=== PATIENT | female | born 1940 | race Caucasian/White ===

== ENCOUNTER 2016-08-14 05:50 | Day surgery (SDC) | payer OTHER, MEDICARE ==
[2016-08-11 11:02] VITALS: BMI 18.7
--- NOTE | 2016-08-14 07:07 | HP ---
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 patient presents for ECT his last ECT was 07/09/16 at [facility]. patient reports the ect program at [facility] closed, as a result she was referred to [facility] for ect. patient reports she was on antidepressents, however, the medications were discontinued due to elevated liver enzymes. patient does report an improvement in depressive symptoms since starting ECT. She denies any recent illness or hospitalizations. 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 Cardiovascular: Yes: Aneurysm Gastrointestinal: Yes: Inflamatory Bowel Disease ...: No Infectious Disease: Yes: Other (chronic hip infection, on doxycline for a lifetime) - Past Surgical History Past Surgical History: Yes: AAA Repair, Colostomy (with reversal=), Tonsillectomy Additional Past Surgical History: bilateral hip replacement bilateral knee replacement - Advance Directives Advance Directives: Yes: Living Will - Smoking History Smoking history: Former smoker Have you smoked in the past 12 months: No If you are a former smoker, when did you quit?: 1999 - Alcohol/Substance Use Hx Alcohol Use: No - Social History Usual Living Arrangement: Yes: Alone ADL: Independent Occupation: retired History of Recent Travel: No Home Medications - Allergies Allergies/Adverse Reactions: Allergies Allergy/AdvReac Type Severity Reaction Status Date / Time amylase [From Creon] Allergy Intermediate Rash Verified 08/11/16 11:05 lipase [From Creon] Allergy Intermediate Rash Verified 08/11/16 11:05 protease [From Creon] Allergy Intermediate Rash Verified 08/11/16 11:05 shellfish derived Allergy Intermediate RASH, Verified 08/11/16 11:05 DIARRHEA furosemide Allergy UNKNOWN Verified 08/11/16 11:05 - Home Medications Home Medications: Ambulatory Orders Aspirin Coated [Ecotrin -] 81 mg PO DAILY 08/11/16 Biotin 2,500 mcg PO DAILY 08/11/16 Calcium Carbonate/Vitamin D3 [Calcium 500-Vit D3 600 Tablet] 1 tab PO DAILY Cholestyramine/Aspartame [Prevalite Powder] 231 gm PO BID 08/11/16 Cranberry Conc/Ascorbic Acid [Cranberry Concentrate Softgel] 2 cap PO DAILY Doxycycline Hyclate 100 mg PO BID 08/11/16 Fenofibrate Nanocrystallized [Fenofibrate] 145 mg PO DAILY 08/11/16 Insulin Glargine,Hum.rec.anlog [Lantus Solostar PEN -] 0 - 4 units SQ BID L.acidoph,Paracasei, B.lactis [Probiotic] 1 each PO DAILY 08/11/16 Levothyroxine [Synthroid -] 50 mcg PO DAILY 08/11/16 Lorazepam [Ativan] 1.5 mg PO HS 08/11/16 Mirtazapine [Remeron -] 15 mg PO HS 08/11/16 Multivit-Min/Iron/Folic/Lutein [Centrum Silver Women Tablet] 1 tab PO DAILY Ranitidine HCl [Zantac] 300 mg PO TID 08/11/16 Sodium Bicarbonate 650 mg PO TID 08/11/16 Family Disease History - Family Disease History Family History: Unremarkable Review of Systems - Review of Systems Constitutional: reports: No Symptoms Eyes: reports: No Symptoms HENT: reports: No Symptoms Neck: reports: No Symptoms Cardiovascular: reports: No Symptoms Respiratory: reports: No Symptoms Gastrointestinal: reports: No Symptoms Genitourinary: reports: No Symptoms Breasts: reports: No Symptoms Reported Musculoskeletal: reports: No Symptoms Integumentary: reports: No Symptoms Neurological: reports: No Symptoms Endocrine: reports: No Symptoms Hematology/Lymphatic: reports: No Symptoms Psychiatric: reports: No Symptoms Physical Examination Constitutional: Yes: No Distress, Calm, Cachectic Eyes: Yes: WNL, Conjunctiva Clear, EOM Intact HENT: Yes: WNL, Atraumatic, Normocephalic Cardiovascular: Yes: WNL, Regular Rate and Rhythm, Murmur, S1, S2, Other (2/6 systolic murmur) Respiratory: Yes: Regular, CTA Bilaterally Gastrointestinal: Yes: Normal Bowel Sounds, Soft ...Rectal Exam: Yes: Deferred Renal/: Yes: WNL. No: CVA Tenderness - Left, CVA Tenderness - Right Musculoskeletal: Yes: WNL Extremities: Yes: WNL Edema: Yes (chronic as per pt ) Edema: LLE: 1+, RLE: 1+ Peripheral Pulses WNL: Yes Peripheral Pulses: Left Radial: 4+, Right Radial: 4+, Left Doralis Pedis: 3+, Right Dorsalis Pedis: 3+, Left Femoral: 3+, Right Femoral: 3+ Integumentary: Yes: WNL Neurological: Yes: WNL, Alert, Oriented ...Motor Strength: WNL Psychiatric: Yes: WNL, Alert, Oriented Labs: CBC WBC 6.0 K/mm3 (4.0-10.0) 08/14/16 06:00 RBC 3.54 M/mm3 (3.60-5.2) L 08/14/16 06:00 Hgb 11.2 GM/dL (10.7-15.3) 08/14/16 06:00 Hct 34.5 % (32.4-45.2) 08/14/16 06:00 MCV 97.7 fl (80-96) H 08/14/16 06:00 MCHC 32.5 g/dl (32.0-36.0) 08/14/16 06:00 RDW 15.1 % (11.6-15.6) 08/14/16 06:00 Plt Count 195 K/MM3 (134-434) 08/14/16 06:00 MPV 8.8 fl (7.5-11.1) 08/14/16 06:00 Neutrophils % 48.1 % (42.8-82.8) 08/14/16 06:00 Lymphocytes % 39.3 % (8-40) 08/14/16 06:00 Monocytes % 9.5 % (3.8-10.2) 08/14/16 06:00 Eosinophils % 2.3 % (0-4.5) 08/14/16 06:00 Basophils % 0.8 % (0-2.0) 08/14/16 06:00 Imaging - Results EKG: Image Reviewed, Other (nsr, left axix deviation) Assessment/Plan pt is a 76 y/o female that presents for ECT,she has received anesthesia in the past and denies any adverse reaction.. labs and ekg reviewed no signs of fluid overload noted on exam pt is low risk for ect informed consent, risks/benefits to be obtained by Dr Titus
[2016-08-14 07:26] LABS: BASOPHIL 0.8 % (0-2.0); EOSINOPHIL 2.3 % (0-4.5); MCH 31.8 pg (25.7-33.7); MCHC 32.5 g/dl (32.0-36.0); MEAN CELL VOLUME 97.7 fl (80-96); MEAN PLT VOLUME 8.8 fl (7.5-11.1); NEUTROPHILS 48.1 % (42.8-82.8); PLATELET COUNT 195 K/MM3 (134-434); RDW 15.1 % (11.6-15.6)
[2016-08-14 08:24] LABS: ALBUMIN 2.7 g/dl (3.4-5.0); BILIRUBIN,TOTAL 0.3 mg/dL (0.2-1.0); CALCIUM 9.3 mg/dL (8.5-10.1); CREATININE 1.3 mg/dL (0.55-1.02); TOT PROT 6.2 g/dl (6.4-8.2)
[2016-08-14] MEDS ORDERED: KETAMINE HCL 500 MG/10 ML VIAL ONE (08:48)
[2016-08-14] MEDS ORDERED: BACITRACIN 30 GM TUBE TOPICAL OINTMENT ONE (09:27)
[2016-08-14 10:42] VITALS: TEMP 98.1
[2016-08-14 10:43] VITALS: BP 122/75; PULSE 71
--- NOTE | 2016-08-14 16:46 | EKG ---
Test Reason : Blood Pressure : / mmHG Vent. Rate : 079 BPM Atrial Rate : 060 BPM P-R Int : 198 ms QRS Dur : 078 ms QT Int : 392 ms P-R-T Axes : 059 -53 030 degrees QTc Int : 449 ms SINUS RHYTHM WITH FREQUENT PREMATURE VENTRICULAR COMPLEXES LEFT AXIS DEVIATION LOW VOLTAGE QRS NO PREVIOUS ECGS AVAILABLE Confirmed by MD ROSALES MARJORY ([id number]) on 08/14/2016 4:46:26 PM Referred By: Al Titus Confirmed By:MITA ROSALES MD
== END 2016-08-14 10:35 | disposition home or self-care (01) ==
LOC: FECT 05:50
PROVIDERS: ATTEND Psychiatry & Neurology Psychiatry
PROC: GZB4ZZZ Other Electroconvulsive Therapy (ICD-10-PCS; principal; 2016-08-14 07:00)
DX: F33.2 Major depressive disorder, recurrent severe without psychotic features (principal)
CPT/HCPCS: 36415; 80053; 85025; 90870; 93005; 94760

== ENCOUNTER 2016-09-11 05:46 | Day surgery (SDC) | payer OTHER, MEDICARE ==
[2016-09-03 10:58] VITALS: BMI 18.7
[2016-09-11] MEDS ORDERED: ONDANSETRON 4 MG/2 ML VIAL IVPUSH PRN (06:46)
[2016-09-11 06:51] VITALS: TEMP 97.7
[2016-09-11] MEDS ORDERED: KETAMINE HCL 500 MG/10 ML VIAL ONE (07:18)
[2016-09-11 09:06] VITALS: BP 130/72; PULSE 80
== END 2016-09-11 09:33 | disposition home or self-care (01) ==
LOC: FECT 05:46
PROVIDERS: ATTEND Psychiatry & Neurology Psychiatry
PROC: GZB4ZZZ Other Electroconvulsive Therapy (ICD-10-PCS; principal; 2016-09-11 07:00)
DX: F33.2 Major depressive disorder, recurrent severe without psychotic features (principal)
CPT/HCPCS: 90870; 94760

== ENCOUNTER 2016-10-09 05:39 | Day surgery (SDC) | payer OTHER, MEDICARE ==
--- NOTE | 2016-10-09 06:56 | HP ---
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 Patient presents for ECT, her last ECT was 09/11/16. Patient reports feeling well , denies any recent medication changes. She reports compliance with prescribed medication. patient denies any suicidal or homicidal ideation, visual or auditory hallucination. 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 Cardiovascular: Yes: Aneurysm Gastrointestinal: Yes: Inflamatory Bowel Disease Infectious Disease: Yes: Other (chronic hip infection, on doxycline for a lifetime) - Past Surgical History Past Surgical History: Yes: AAA Repair, Colostomy (with reversal=), Tonsillectomy - Smoking History Smoking history: Former smoker Have you smoked in the past 12 months: No If you are a former smoker, when did you quit?: 1999 - Alcohol/Substance Use Hx Alcohol Use: No - Social History Usual Living Arrangement: Yes: Other (with son and daughter in law) ADL: Independent Occupation: retired History of Recent Travel: No Home Medications - Allergies Allergies/Adverse Reactions: Allergies Allergy/AdvReac Type Severity Reaction Status Date / Time amylase [From Creon] Allergy Intermediate Rash Verified 08/11/16 11:05 lipase [From Creon] Allergy Intermediate Rash Verified 08/11/16 11:05 protease [From Creon] Allergy Intermediate Rash Verified 08/11/16 11:05 shellfish derived Allergy Intermediate RASH, Verified 08/11/16 11:05 DIARRHEA furosemide Allergy UNKNOWN Verified 08/11/16 11:05 - Home Medications Home Medications: Ambulatory Orders Aspirin Coated [Ecotrin -] 81 mg PO DAILY 08/11/16 Biotin 2,500 mcg PO DAILY 08/11/16 Calcium Carbonate/Vitamin D3 [Calcium 500-Vit D3 600 Tablet] 1 tab PO DAILY Cholestyramine/Aspartame [Prevalite Powder] 231 gm PO BID 08/11/16 Cranberry Conc/Ascorbic Acid [Cranberry Concentrate Softgel] 2 cap PO DAILY Doxycycline Hyclate 100 mg PO BID 08/11/16 Fenofibrate Nanocrystallized [Fenofibrate] 145 mg PO DAILY 08/11/16 Insulin Glargine,Hum.rec.anlog [Lantus Solostar PEN -] 0 - 4 units SQ BID L.acidoph,Paracasei, B.lactis [Probiotic] 1 each PO DAILY 08/11/16 Levothyroxine [Synthroid -] 50 mcg PO DAILY 08/11/16 Lorazepam [Ativan] 1.5 mg PO HS 08/11/16 Mirtazapine [Remeron -] 15 mg PO HS 08/11/16 Multivit-Min/Iron/Folic/Lutein [Centrum Silver Women Tablet] 1 tab PO DAILY Sodium Bicarbonate 650 mg PO TID 08/11/16 Acetaminophen [Tylenol .Extra-Strength -] 1,000 mg PO DAILY PRN 08/14/16 Lipase/Protease/Amylase [Zenpep Dr 3,000 Units Capsule] 1 each PO TID 09/11/16 Family Disease History - Family Disease History Family History: Unremarkable Review of Systems - Review of Systems Constitutional: reports: No Symptoms, Other Eyes: reports: No Symptoms HENT: reports: No Symptoms Neck: reports: No Symptoms Cardiovascular: reports: No Symptoms Respiratory: reports: No Symptoms Gastrointestinal: reports: No Symptoms Genitourinary: reports: No Symptoms Breasts: reports: No Symptoms Reported Musculoskeletal: reports: No Symptoms Integumentary: reports: No Symptoms Neurological: reports: No Symptoms Endocrine: reports: No Symptoms Hematology/Lymphatic: reports: No Symptoms Psychiatric: reports: No Symptoms Physical Examination Constitutional: Yes: Well Nourished, No Distress, Calm, Thin Eyes: Yes: WNL, Conjunctiva Clear HENT: Yes: WNL, Atraumatic, Normocephalic Neck: Yes: WNL, Supple, Trachea Midline Cardiovascular: Yes: WNL, Regular Rate and Rhythm, S1, S2 Respiratory: Yes: WNL, Regular, CTA Bilaterally Gastrointestinal: Yes: WNL, Normal Bowel Sounds, Soft ...Rectal Exam: Yes: Deferred Renal/: Yes: WNL Breast(s): Yes: WNL Musculoskeletal: Yes: WNL Extremities: Yes: WNL Edema: No Peripheral Pulses WNL: Yes Peripheral Pulses: Left Radial: 4+, Right Radial: 4+, Left Doralis Pedis: 3+, Right Dorsalis Pedis: 3+, Left Femoral: 3+, Right Femoral: 3+ Integumentary: Yes: WNL Neurological: Yes: WNL, Alert, Oriented ...Motor Strength: WNL Psychiatric: Yes: WNL, Alert, Oriented Labs: reviewed 08/29 Imaging - Results EKG: Image Reviewed, Other (nsr left axis deviation, w/pvc no ischemic changes) Assessment/Plan pt is a 76 y/o female that presents for ECT, pt has received ECT in the past and denies any past reaction to anesthesia. labs and ekg reviewed pt is low risk for procedure informed consent, risks and benefits to be obtained by Dr Titus
[2016-10-09 07:09] VITALS: TEMP 98.2; BMI 18.8
[2016-10-09] MEDS ORDERED: KETAMINE HCL 500 MG/10 ML VIAL ONE (07:29)
[2016-10-09 09:43] VITALS: BP 137/77; PULSE 84
== END 2016-10-09 09:30 | disposition home or self-care (01) ==
LOC: FECT 05:39
PROVIDERS: ATTEND Psychiatry & Neurology Psychiatry
PROC: GZB4ZZZ Other Electroconvulsive Therapy (ICD-10-PCS; principal; 2016-10-09 07:00)
DX: F33.2 Major depressive disorder, recurrent severe without psychotic features (principal)
CPT/HCPCS: 90870; 94760

== ENCOUNTER 2016-11-06 05:37 | Day surgery (SDC) | payer OTHER, MEDICARE ==
[2016-10-28 12:50] VITALS: BMI 18.8
[2016-11-06] MEDS ORDERED: KETAMINE HCL 500 MG/10 ML VIAL ONE (07:20)
[2016-11-06 09:27] VITALS: BP 116/76; PULSE 72; TEMP 97.9
== END 2016-11-06 09:30 | disposition home or self-care (01) ==
LOC: FECT 05:37
PROVIDERS: ATTEND Psychiatry & Neurology Psychiatry
PROC: GZB4ZZZ Other Electroconvulsive Therapy (ICD-10-PCS; principal; 2016-11-06 07:15)
DX: F33.2 Major depressive disorder, recurrent severe without psychotic features (principal)
CPT/HCPCS: 90870; 94760

== ENCOUNTER 2016-12-04 05:42 | Day surgery (SDC) | payer OTHER, MEDICARE ==
[2016-11-28 11:25] VITALS: BMI 18.8
[2016-12-04 06:31] VITALS: TEMP 97.7
--- NOTE | 2016-12-04 06:51 | HP ---
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 Patient presents for ECT her last ECT was 11/06/16. She reports feeling well and reports and improvement in depressive symptoms since starting ECT. She denies any recent illness or hospitalizations. She denies any medication changes. 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 Cardiovascular: Yes: Aneurysm Gastrointestinal: Yes: Inflamatory Bowel Disease Infectious Disease: Yes: Other (chronic hip infection, on doxycline for a lifetime) - Past Surgical History Past Surgical History: Yes: AAA Repair, Colostomy (with reversal=), Tonsillectomy - Smoking History Smoking history: Former smoker Have you smoked in the past 12 months: No If you are a former smoker, when did you quit?: 1999 - Alcohol/Substance Use Hx Alcohol Use: No History of Substance Use: reports: None - Social History Usual Living Arrangement: Yes: Alone ADL: Independent Occupation: retired History of Recent Travel: No Home Medications - Allergies Allergies/Adverse Reactions: Allergies Allergy/AdvReac Type Severity Reaction Status Date / Time amylase [From Creon] Allergy Intermediate Rash Verified 08/11/16 11:05 lipase [From Creon] Allergy Intermediate Rash Verified 08/11/16 11:05 protease [From Creon] Allergy Intermediate Rash Verified 08/11/16 11:05 shellfish derived Allergy Intermediate RASH, Verified 08/11/16 11:05 DIARRHEA furosemide Allergy UNKNOWN Verified 08/11/16 11:05 - Home Medications Home Medications: Ambulatory Orders Aspirin Coated [Ecotrin -] 81 mg PO DAILY 08/11/16 Biotin 2,500 mcg PO DAILY 08/11/16 Calcium Carbonate/Vitamin D3 [Calcium 500-Vit D3 600 Tablet] 1 tab PO BID Cholestyramine/Aspartame [Prevalite Powder] 231 gm PO BID 08/11/16 Cranberry Conc/Ascorbic Acid [Cranberry Concentrate Softgel] 1 cap PO DAILY Doxycycline Hyclate 100 mg PO BID 08/11/16 Fenofibrate Nanocrystallized [Fenofibrate] 145 mg PO BID 08/11/16 Insulin Glargine,Hum.rec.anlog [Lantus Solostar PEN -] 0 - 4 units SQ DAILY L.acidoph,Paracasei, B.lactis [Probiotic] 1 each PO DAILY 08/11/16 Levothyroxine [Synthroid -] 50 mcg PO DAILY 08/11/16 Lorazepam [Ativan] 1.5 mg PO HS 08/11/16 Mirtazapine [Remeron -] 15 mg PO HS 08/11/16 Multivit-Min/Iron/Folic/Lutein [Centrum Silver Women Tablet] 1 tab PO DAILY Sodium Bicarbonate 650 mg PO TID 08/11/16 Acetaminophen [Tylenol .Extra-Strength -] 1,000 mg PO DAILY PRN 08/14/16 Lipase/Protease/Amylase [Zenpep Dr 3,000 Units Capsule] 2 each PO TID 09/11/16 Family Disease History - Family Disease History Family History: Unremarkable Review of Systems - Review of Systems Constitutional: reports: No Symptoms Eyes: reports: No Symptoms HENT: reports: No Symptoms Neck: reports: No Symptoms Cardiovascular: reports: No Symptoms Respiratory: reports: No Symptoms Gastrointestinal: reports: No Symptoms Genitourinary: reports: No Symptoms Musculoskeletal: reports: No Symptoms Integumentary: reports: No Symptoms Neurological: reports: No Symptoms Endocrine: reports: No Symptoms Hematology/Lymphatic: reports: No Symptoms Psychiatric: reports: No Symptoms Physical Examination Vital Signs: Vital Signs Temperature 97.7 F 12/04/16 06:29 Pulse Rate 66 12/04/16 06:29 Respiratory Rate 18 12/04/16 06:29 Blood Pressure 117/62 12/04/16 06:29 O2 Sat by Pulse Oximetry (%) 100 12/04/16 06:29 Constitutional: Yes: No Distress, Calm, Cachectic Eyes: Yes: WNL, Conjunctiva Clear, EOM Intact HENT: Yes: WNL, Atraumatic, Normocephalic, Rhinnorhea Neck: Yes: WNL, Supple Cardiovascular: Yes: Regular Rate and Rhythm, S1, S2 Respiratory: Yes: WNL, Regular, CTA Bilaterally Gastrointestinal: Yes: WNL, Normal Bowel Sounds, Soft ...Rectal Exam: Yes: Deferred Renal/: Yes: WNL Musculoskeletal: Yes: WNL Extremities: Yes: WNL Edema: Yes (+ 2 RLLE, chronic ) Peripheral Pulses WNL: Yes Integumentary: Yes: WNL Neurological: Yes: WNL, Alert, Oriented ...Motor Strength: WNL Psychiatric: Yes: WNL, Alert, Oriented Labs: 08/29 Imaging - Results EKG: Other (nsr left axix deviation) Other: Other (echo 08/27/16 EF 55%) Assessment/Plan pt is a 76 y/o female that presents for ECT, pt has received ect in the past and denies any adverse reaction to anesthesia. pt appears euvolemic on exam, labs and ekg reviewed. pt is low risk for procedure informed consent risks/benefits to be obtained by Dr Titus
[2016-12-04 09:10] VITALS: BP 118/70; PULSE 77
== END 2016-12-04 09:15 | disposition home or self-care (01) ==
LOC: FECT 05:42
PROVIDERS: ATTEND Psychiatry & Neurology Psychiatry
PROC: GZB4ZZZ Other Electroconvulsive Therapy (ICD-10-PCS; principal; 2016-12-04 07:45)
DX: F33.2 Major depressive disorder, recurrent severe without psychotic features (principal)
CPT/HCPCS: 90870; 94760

== ENCOUNTER 2017-01-01 05:37 | Day surgery (SDC) | payer OTHER, MEDICARE ==
[2017-01-01 06:42] VITALS: BMI 18.3
[2017-01-01] MEDS ORDERED: KETAMINE HCL 500 MG/10 ML VIAL ONE (07:34)
[2017-01-01 08:36] VITALS: TEMP 98
[2017-01-01 10:04] VITALS: PULSE 79
[2017-01-01 10:07] VITALS: BP 138/75
== END 2017-01-01 10:09 | disposition home or self-care (01) ==
LOC: FECT 05:37
PROVIDERS: ATTEND Psychiatry & Neurology Psychiatry
PROC: GZB4ZZZ Other Electroconvulsive Therapy (ICD-10-PCS; principal; 2017-01-01 07:00)
DX: F33.2 Major depressive disorder, recurrent severe without psychotic features (principal)
CPT/HCPCS: 90870; 94760

== ENCOUNTER 2017-01-29 05:38 | Day surgery (SDC) | payer OTHER, MEDICARE ==
--- NOTE | 2017-01-29 07:00 | HP ---
Admitting History and Physical - Admission History of Present Illness: patient is a 76 y/o female with a past medical history of depression, migraine, niddm, hypothyroidism, IBS, chronic hip infections (long-term doxycline), thoracic abdominal aneurysm (s/p endovascular repair). patient presents for ect her last ect was 01/01/17. She reports feeling well, patient denies any recent hospitalizations or illnesses. Patient reports any changes in medications. She denies any suicidal or homicidal ideation, visual or auditory hallucinations. 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 Cardiovascular: Yes: Aneurysm Gastrointestinal: Yes: Inflamatory Bowel Disease Infectious Disease: Yes: Other (chronic hip infection, on doxycline for a lifetime) - Past Surgical History Past Surgical History: Yes: AAA Repair, Colostomy (with reversal=), Tonsillectomy - Smoking History Smoking history: Former smoker Have you smoked in the past 12 months: No If you are a former smoker, when did you quit?: 1999 - Alcohol/Substance Use Hx Alcohol Use: No History of Substance Use: reports: None - Social History Usual Living Arrangement: Yes: With Child, Other ADL: Independent Occupation: retired History of Recent Travel: No Home Medications - Allergies Allergies/Adverse Reactions: Allergies Allergy/AdvReac Type Severity Reaction Status Date / Time amylase [From Creon] Allergy Intermediate Rash Verified 08/11/16 11:05 lipase [From Creon] Allergy Intermediate Rash Verified 08/11/16 11:05 protease [From Creon] Allergy Intermediate Rash Verified 08/11/16 11:05 shellfish derived Allergy Intermediate RASH, Verified 08/11/16 11:05 DIARRHEA furosemide Allergy UNKNOWN Verified 08/11/16 11:05 - Home Medications Home Medications: Ambulatory Orders Aspirin Coated [Ecotrin -] 81 mg PO DAILY 08/11/16 Calcium Carbonate/Vitamin D3 [Calcium 500-Vit D3 600 Tablet] 1 tab PO BID Cholestyramine/Aspartame [Prevalite Powder] 231 gm PO BID 08/11/16 Cranberry Conc/Ascorbic Acid [Cranberry Concentrate Softgel] 1 cap PO DAILY Doxycycline Hyclate 100 mg PO BID 08/11/16 Fenofibrate Nanocrystallized [Fenofibrate] 145 mg PO DAILY 08/11/16 Insulin Glargine,Hum.rec.anlog [Lantus Solostar PEN -] 0 - 4 units SQ BID L.acidoph,Paracasei, B.lactis [Probiotic] 1 each PO DAILY 08/11/16 Levothyroxine [Synthroid -] 50 mcg PO DAILY 08/11/16 Lorazepam [Ativan] 1.5 mg PO HS 08/11/16 Mirtazapine [Remeron -] 15 mg PO HS 08/11/16 Multivit-Min/Iron/Folic/Lutein [Centrum Silver Women Tablet] 1 tab PO DAILY Sodium Bicarbonate 650 mg PO TID 08/11/16 Acetaminophen [Tylenol .Extra-Strength -] 1,000 mg PO DAILY PRN 08/14/16 Lipase/Protease/Amylase [Zenpep Dr 3,000 Units Capsule] 2 each PO TID 09/11/16 Denosumab [Prolia] 60 mg SQ ASDIR 01/01/17 Family Disease History - Family Disease History Family History: Unremarkable Review of Systems - Review of Systems Constitutional: reports: No Symptoms Eyes: reports: No Symptoms HENT: reports: No Symptoms Neck: reports: No Symptoms Cardiovascular: reports: No Symptoms Respiratory: reports: No Symptoms Gastrointestinal: reports: No Symptoms Genitourinary: reports: No Symptoms Musculoskeletal: reports: No Symptoms Integumentary: reports: No Symptoms Neurological: reports: No Symptoms Endocrine: reports: No Symptoms Hematology/Lymphatic: reports: No Symptoms Psychiatric: reports: No Symptoms Physical Examination Vital Signs: Vital Signs Temperature 98.2 F 01/29/17 06:30 Pulse Rate 69 01/29/17 06:30 Respiratory Rate 18 01/29/17 06:30 Blood Pressure 125/73 01/29/17 06:30 O2 Sat by Pulse Oximetry (%) 99 01/29/17 06:30 Constitutional: Yes: No Distress, Calm, Cachectic, Thin Eyes: Yes: WNL, Conjunctiva Clear, EOM Intact HENT: Yes: WNL, Atraumatic, Normocephalic Neck: Yes: WNL, Supple, Trachea Midline Cardiovascular: Yes: WNL, Regular Rate and Rhythm, S1, S2 Respiratory: Yes: WNL, Regular, CTA Bilaterally Gastrointestinal: Yes: WNL, Normal Bowel Sounds, Soft ...Rectal Exam: Yes: Deferred Renal/: Yes: WNL Musculoskeletal: Yes: WNL Extremities: Yes: WNL Edema: No Peripheral Pulses WNL: Yes Peripheral Pulses: Left Radial: 4+, Right Radial: 4+, Left Doralis Pedis: 3+, Right Dorsalis Pedis: 3+, Left Femoral: 3+, Right Femoral: 3+ Integumentary: Yes: WNL Neurological: Yes: WNL, Alert, Oriented ...Motor Strength: WNL Psychiatric: Yes: WNL, Alert, Oriented Labs: reviewed 08/29 Imaging - Results EKG: Image Reviewed, Other (nsr no ischemic changes) Assessment/Plan pt is a 76 y/o female that presents for ect, she has received ect in the past and denies any adverse reaction to anesthesia. labs and ekg reviewed pt is low risk for procedure informed consent, risk/benefits to be obtained by Dr Titus
[2017-01-29] MEDS ORDERED: KETAMINE HCL 500 MG/10 ML VIAL ONE (07:05)
[2017-01-29] MEDS ORDERED: LACTATED RINGERS SOLUTION 1,000 ML IV SCH (08:00)
[2017-01-29 08:14] VITALS: TEMP 98
[2017-01-29 08:43] VITALS: BP 138/78; PULSE 76
== END 2017-01-29 09:00 | disposition home or self-care (01) ==
LOC: FECT 05:38
PROVIDERS: ATTEND Psychiatry & Neurology Psychiatry
PROC: GZB4ZZZ Other Electroconvulsive Therapy (ICD-10-PCS; principal; 2017-01-29 07:00)
DX: F33.2 Major depressive disorder, recurrent severe without psychotic features (principal)
CPT/HCPCS: 90870; 94760

== ENCOUNTER 2017-02-26 05:37 | Day surgery (SDC) | payer OTHER, MEDICARE ==
[2017-02-25 11:58] VITALS: BMI 18.3
[2017-02-26 08:15] LABS: ANION GAP 6 (8-16); CALCIUM 9.2 mg/dl (8.4-10.2); CO2 18 mmol/L (22-28); CREATININE 1.3 mg/dl (0.6-1.3); GLUCOSE,RANDOM 100 mg/dl (74-106)
[2017-02-26] MEDS ORDERED: KETAMINE HCL 500 MG/10 ML VIAL ONE (08:40)
[2017-02-26 09:27] LABS: WHITE BLOOD COUNT 6.8 K/mm3 (4.0-10.0)
[2017-02-26 09:29] LABS: MCH 32.5 pg (25.7-33.7); MCHC 33.5 g/dl (32.0-36.0); MEAN CELL VOLUME 97.1 fl (80-96); RDW 14.6 % (11.6-15.6)
[2017-02-26 09:30] LABS: MEAN PLT VOLUME 8.5 fl (7.5-11.1); PLATELET COUNT 257 K/MM3 (134-434)
[2017-02-26] MEDS ORDERED: PROMETHAZINE HCL 25 MG/1 ML VIAL IVPUSH PRN (09:35)
[2017-02-26] MEDS ORDERED: LACTATED RINGERS SOLUTION 1,000 ML IV SCH (09:45)
[2017-02-26 10:43] VITALS: PULSE 62
[2017-02-26 10:45] VITALS: BP 116/67; TEMP 97.8
--- NOTE | 2017-02-26 15:29 | EKG ---
Test Reason : Blood Pressure : / mmHG Vent. Rate : 071 BPM Atrial Rate : 071 BPM P-R Int : 184 ms QRS Dur : 086 ms QT Int : 382 ms P-R-T Axes : 052 -55 028 degrees QTc Int : 415 ms SINUS RHYTHM LEFTWARD AXIS CANNOT RULE OUT INFERIOR INFARCT , AGE UNDETERMINED ABNORMAL ECG WHEN COMPARED WITH ECG OF 14-AUG-2016 06:45, PREMATURE VENTRICULAR COMPLEXES ARE NO LONGER PRESENT Confirmed by MEENAKSHI SANCHEZ, LYDIA ([id number] on 02/26/2017 3:29:29 PM Referred By: Al Titus Confirmed By:LYDIA ARRIETA MD
== END 2017-02-26 10:45 | disposition home or self-care (01) ==
LOC: FECT 05:37
PROVIDERS: ATTEND Psychiatry & Neurology Psychiatry
PROC: GZB4ZZZ Other Electroconvulsive Therapy (ICD-10-PCS; principal; 2017-02-26 07:00)
DX: F33.2 Major depressive disorder, recurrent severe without psychotic features (principal)
CPT/HCPCS: 36415; 80048; 85027; 90870; 93005; 94760